=== PATIENT | male | born 1955 | race Caucasian/White ===

== ENCOUNTER → 2020-05-12 16:15 | Outpatient (BNVA) | payer OTHER, SELFPAY | PROVIDERS: Visit Provider Surgery | DX: Z11.59 Encounter for screening for other viral diseases (principal) | CPT/HCPCS: 87635 ==

== ENCOUNTER 2020-05-18 07:54 | Day surgery (SDC) | payer OTHER, SELFPAY ==
[2020-05-16 13:55] VITALS: BMI 24.0
[2020-05-18 08:04] VITALS: BP 115/85; PULSE 62; RESP 18; TEMP 36.8; O2SAT 97
[2020-05-18] MEDS: sodium chloride 0.9% 1,000 ML 30 ML IV (08:18)
--- NOTE | 2020-05-18 08:22 | ANES.PREANE2 ---
Pre-Anesthetic Assessment Pre-Anesthetic Assessment: Height/Weight: Height 1.77 m Weight 74.843 kg Temp Pulse Resp BP Pulse Ox 98.3 F 62 18 115/85 97 05/18/20 08:04 05/18/20 08:04 05/18/20 08:04 05/18/20 08:04 05/18/20 08:04 Preop Diagnosis: Nausea, vomiting, screening Proposed Procedure: Operation Date: 05/18/20 09:00 Proposed Procedures p EGD [id number] R11.2/Z12.11(Not Applicable) - Brian Barragan MD s Colonoscopy(Not Applicable) - Brian Barragan MD Familial anesthetic complications: None Last intake: Intake Last Liquid Date 05/17/20 Last Liquid Time 19:00 Last Solid Date 05/17/20 Last Solid Time 12:00 Social: Social History: Alcohol and Tobacco Exam: Pre-Anes Outpt Exam: alert, oriented x 3, clear to auscultation bilaterally and regular rate & rhythm Airway: Cervical ROM: WNL MP: 2 Dentition: Other (missing) CV/HEM: CV/HEM: HTN Anesthetic Plan: ASA status: 2 Anesthesia: MAC Risk of > 500 ml blood loss (7ml/kg in children): No Meds/Allergies Current Medications: Current Medications Generic Name Dose Route Start Last Admin Trade Name Freq PRN Reason Stop Dose Admin Sodium Chloride 1,000 mls @ 30 ml s/hr 05/18/20 08:00 05/18/20 08:18 Sodium Chloride 0.9% IV 30 mls/hr .Q24H GRAHAM Administration PFSH Anesthesia PFSH: Medical History (Updated 04/28/20 @ 14:55 by Brian Barragan MD) Hepatitis C Hypertension Left inguinal hernia Umbilical hernia Surgical History H/O circumcision H/O right inguinal hernia repair Family History Mother Cancer brain Father Cancer prostate, skin Other Diabetes Denies family history of CAD (coronary artery disease) Anesthesia complication Bleeding disorder Social History Smoking and tobacco status: current every day smoker Alcohol intake: current Household members: significant other Marital status: Single Current occupational status: retired History of recent travel: No Data Anesthesia Cardiac Studies: No Data to Display
--- NOTE | 2020-05-18 09:21 | W.PM.OPSUD ---
Surgery/Procedure H&P Update DATE OF PROCEDURE: May 18, 2020 DATE H&P PERFORMED: 04/28/20 H&P UPDATE INFORMATION: I have reviewed H&P completed within last 30 days, I have examined patient prior to procedure and No changes to prior documentation PREOP DIAGNOSIS: Nausea, vomiting, screening PLANNED PROCEDURE: Operation Date: 05/18/20 09:00 Proposed Procedures p EGD [id number] R11.2/Z12.11(Not Applicable) - Brian Barragan MD s Colonoscopy(Not Applicable) - Brian Barragan MD
[2020-05-18 09:24] VITALS: BP 133/88; PULSE 86; RESP 18; TEMP 36.1; O2SAT 99
[2020-05-18 09:41] VITALS: BP 145/97; PULSE 62; RESP 18; O2SAT 98
--- NOTE | 2020-05-18 10:00 | ANE.PACU2 ---
Inpatient post-anesthesia follow up: Airway intact: Yes Vital signs: Temperature 97 F Pulse Rate 62 Respiratory Rate 18 Blood Pressure 145/97 Pulse Oximetry 98 Oxygen Delivery Me thod Room Air Oxygen Flow Rate Fraction of Inspir ed Oxygen Hydration adequate: Yes Nausea and vomiting: No Pain level: 1 Mental status: Baseline
== END 2020-05-18 10:01 | disposition home or self-care (01) ==
PROVIDERS: Visit Provider Surgery
PROC: 0DJ08ZZ Inspection of Upper Intestinal Tract, Via Natural or Artificial Opening Endoscopic (ICD-10-PCS; CPT 43235; principal; 2020-05-18 09:00)
PROC: 0DJD8ZZ Inspection of Lower Intestinal Tract, Via Natural or Artificial Opening Endoscopic (ICD-10-PCS; CPT 45378; 2020-05-18 09:00)
DX: Z12.11 Encounter for screening for malignant neoplasm of colon (principal); R11.2 Nausea with vomiting, unspecified; K57.30 Diverticulosis of large intestine without perforation or abscess without bleeding; K64.8 Other hemorrhoids; D12.8 Benign neoplasm of rectum; K44.9 Diaphragmatic hernia without obstruction or gangrene; K29.80 Duodenitis without bleeding; K25.9 Gastric ulcer, unspecified as acute or chronic, without hemorrhage or perforation; I10 Essential (primary) hypertension; B19.20 Unspecified viral hepatitis C without hepatic coma; F17.210 Nicotine dependence, cigarettes, uncomplicated
CPT/HCPCS: 12345; 43235; 45378; J2704; J7030

== ENCOUNTER → 2020-07-03 16:30 | Outpatient (BNVA) | payer OTHER, SELFPAY | PROVIDERS: Visit Provider Internal Medicine | DX: R76.8 Other specified abnormal immunological findings in serum (principal); B19.20 Unspecified viral hepatitis C without hepatic coma; B18.2 Chronic viral hepatitis C | CPT/HCPCS: 36415; 80053; 82105; 85025; 87522 ==

== ENCOUNTER 2020-08-01 07:32 | Outpatient (CLI) | payer OTHER, SELFPAY ==
--- NOTE | 2020-08-01 08:00 | US_ITS ---
WS: [id number] RIGHT UPPER QUADRANT ULTRASOUND HISTORY: R76.8 - Other specified abnormal immunological findings in serum COMPARISON: None available. Liver: 16.1 cm in length. Liver is top normal size to slightly enlarged. No mass or bile duct dilatat ion. Mildly coarsened echotexture. Gallbladder: Normally distended gallbladder with no stones or wall thickening. CBD: 0.2 cm Pancreas: Normal size and echogenicity. Right kidney: 10.7 cm in length. Normal size and echogenicity. No hydronephrosis or mass. Aorta and IVC: Unremarkable abdominal aorta and IVC. No ascites. US/US liver [id number] IMPRESSION: 1. Normal gallbladder. 2. Mild hepatomegaly with mildly coarsened echotexture. Early changes of cirrh osis should be considered.
== END 2020-08-01 07:33 | disposition home or self-care (01) ==
LOC: US 07:32
PROVIDERS: Visit Provider Internal Medicine
DX: R76.8 Other specified abnormal immunological findings in serum (principal); R16.0 Hepatomegaly, not elsewhere classified
CPT/HCPCS: 76705

== ENCOUNTER → 2020-10-10 11:30 | Outpatient (BNVA) | payer OTHER, SELFPAY | PROVIDERS: PCP Emergency Medicine Emergency Medical Services; Visit Provider Internal Medicine | DX: B18.2 Chronic viral hepatitis C (principal); B19.20 Unspecified viral hepatitis C without hepatic coma | CPT/HCPCS: 87522 ==

== ENCOUNTER → 2021-02-14 13:32 | Outpatient (BNVA) | payer OTHER, SELFPAY | PROVIDERS: PCP Emergency Medicine Emergency Medical Services; Visit Provider Internal Medicine | DX: B18.2 Chronic viral hepatitis C (principal) | CPT/HCPCS: 87522 ==

== ENCOUNTER → 2024-02-25 10:32 | Outpatient (BNVA) | payer OTHER, SELFPAY | PROVIDERS: PCP Emergency Medicine Emergency Medical Services; Visit Provider Nurse Practitioner Family | DX: D48.5 Neoplasm of uncertain behavior of skin (principal); L57.0 Actinic keratosis; L82.1 Other seborrheic keratosis; D18.01 Hemangioma of skin and subcutaneous tissue; L81.4 Other melanin hyperpigmentation; L72.0 Epidermal cyst; Z85.820 Personal history of malignant melanoma of skin; Z85.828 Personal history of other malignant neoplasm of skin | CPT/HCPCS: 11102; 17004; 99203 ==

== ENCOUNTER → 2025-03-03 13:59 | Outpatient (BNVA) | payer OTHER, SELFPAY | PROVIDERS: PCP Emergency Medicine Emergency Medical Services; Visit Provider Nurse Practitioner Family | DX: C44.519 Basal cell carcinoma of skin of other part of trunk (principal); C44.619 Basal cell carcinoma of skin of left upper limb, including shoulder; L82.1 Other seborrheic keratosis; D18.01 Hemangioma of skin and subcutaneous tissue; L81.4 Other melanin hyperpigmentation; L72.0 Epidermal cyst; Z85.820 Personal history of malignant melanoma of skin; Z08 Encounter for follow-up examination after completed treatment for malignant neoplasm; Z85.828 Personal history of other malignant neoplasm of skin; D48.5 Neoplasm of uncertain behavior of skin | CPT/HCPCS: 11102; 99213 ==

== ENCOUNTER → 2025-03-29 12:51 | Outpatient (BNVA) | payer OTHER, SELFPAY | PROVIDERS: PCP Emergency Medicine Emergency Medical Services; Visit Provider Dermatology | DX: C44.41 Basal cell carcinoma of skin of scalp and neck (principal); C44.619 Basal cell carcinoma of skin of left upper limb, including shoulder | CPT/HCPCS: 12034; 13132; 17311; 17313; 99214 ==